=== PATIENT | female | born 1940 | race Caucasian/White ===

== ENCOUNTER 2017-04-14 22:57 | Emergency (ER) | payer OTHER, MEDICARE ==
[~2017-04-14] VITALS: Ht 160 cm; Wt 40.8 kg
[~2017-04-14 22:57] MED LIST: ASPIRIN CHILDRE81 MG PO; ATORVASTATIN CA40 MG PO; MIRALAX17 GM PO; PRINIVIL 5MG5 MG PO; RISPERIDONE 00.25 MG PO; SENNA CON/DOCUS1 TAB PO
--- NOTE | 2017-04-14 23:07 | ED MVC/FALL/TRAUMA COMPLAINT ---
History of Present Illness General Chief Complaint: Fall Stated Complaint: BIBA FALL Source: patient Exam Limitations: clinical condition Vital Signs & Intake/Output Vital Signs & Intake/Output Vital Signs Date Time Temp Pulse Resp B/P B/P Pulse O2 O2 Flow FiO2 Mean Ox Delivery Rate 04/15 0128 98.6 88 18 122/63 96 Room Air 04/15 0101 95 Room Air 04/14 2313 98.4 98 18 131/64 97 Room Air ED Intake and Output 04/15 0000 04/14 1200 Intake Total 0 Output Total Balance 0 Intake, Oral 0 Patient 89 lb 15.99 oz Weight Weight Estimated Measurement Method Allergies Coded Allergies: bee venom protein (honey bee) (Severe, ANAPHYLAXIS 04/15/17) cortisone (UNKNOWN 04/15/17) Reconcile Medications No Known Home Medications Triage Nurses Notes Reviewed? yes Onset: Abrupt Duration: hour(s): Timing: recent history Severity: moderate Injuries/Fall Location: upper extremity Method of Injury: fall Loss of Consciousness: no loss of consciousness Modifying Factors: Improves With: rest. Worsens With: movement, palpation. Associated Symptoms: left shoulder pain HPI: 77 yo woman in prior good health, presents after a fall 3-4 hours prior to arrival. She notes, "I just felt the world fall away and hit my wall. My shoulder really hurts." She notes neck pain and right knee pain. She notes no other injury. No head injury, loss of consciousness. Past History Travel History Traveled to [place] past 21 day No Medical History Any Pertinent Medical History? see below for history Neurological: NONE EENT: NONE Cardiovascular: NONE Respiratory: NONE Gastrointestinal: NONE Hepatic: NONE Renal: NONE Musculoskeletal: NONE Psychiatric: anxiety, depression, insomnia Endocrine: NONE Blood Disorders: NONE Cancer(s): NONE [facility] [facility]/Reproductive: NONE History of MRSA: No History of VRE: No History of CDIFF: No Surgical History Surgical History: none Psychosocial History Who do you live with Sister Services at Home None What is your primary language Northern Irish Daily Tobacco Use Amount/Type: => 5 Cigarettes daily Family History Hx Contributory? No Review of Systems Review of Systems Constitutional: Reports: no symptoms. Eyes: Reports: no symptoms. Ears, Nose, Throat, Mouth: Reports: no symptoms. Respiratory: Reports: no symptoms. Cardiovascular: Reports: no symptoms. Gastrointestinal/Abdominal: Reports: no symptoms. Genitourinary: Reports: no symptoms. Musculoskeletal: Reports: no symptoms. Skin: Reports: no symptoms. Neurological/Psychological: Reports: no symptoms. All Other Systems: Reviewed and Negative Physical Exam Physical Exam General Appearance: mild distress, thin, cachectic Head: atraumatic, normal appearance Eyes: Bilateral: normal appearance, PERRL, EOMI. Ears, Nose, Throat, Mouth: hearing grossly normal, moist mucous membrane Neck: normal inspection, supple, full range of motion, normal alignment Respiratory: normal breath sounds, chest non-tender, no respiratory distress, quiet respiration, lungs clear Cardiovascular: regular rate/rhythm Gastrointestinal: normal bowel sounds, soft, non-tender, no organomegaly Back: normal inspection, normal range of motion Extremities: left shoulder with diffuse swelling. moderate tenderness to palpation, decrease ROM. no significant tenderness at left elbow and left wrist. Neurologic/Psych: no motor/sensory deficits, awake, alert, oriented x 3, thenar wasting Skin: intact, normal color, warm/dry Core Measures ACS in differential dx? No CVA/TIA Diagnosis No Sepsis Present: No Sepsis Focused Exam Completed? No Progress Differential Diagnosis: fx, contusion, electrolyte abnormality vs other. Plan of Care: Orders Procedure Date/time Status EKG 04/15 011 Active URINALYSIS 04/14 2307 Active TROPONIN LEVEL 04/14 2307 Complete PARTIAL THROMBOPLASTIN TIME 04/14 2307 Complete PROTHROMBIN TIME 04/14 2307 Complete COMPREHENSIVE METABOLIC PANEL 04/14 2307 Complete CBC WITHOUT DIFFERENTIAL 04/14 2307 Complete EKG 04/14 2307 Active Laboratory Tests 04/15/17 0007: Anion Gap 11, Estimated GFR > 60, BUN/Creatinine Ratio 22.5, Glucose 128 H, Calcium 8.8, Total Bilirubin 0.2, AST 17, ALT 26, Alkaline Phosphatase 105, Troponin I 0.22 *H, Total Protein 6.6, Albumin 3.2 L, Globulin 3.4, Albumin/ Globulin Ratio 0.9 L, PT 13.1 H, INR 1.25 H, APTT 32, CBC w Diff NO MAN DIFF REQ, RBC 3.81 L, MCV 86.6, MCH 28.9, RDW 13.8, MPV 8.1, Gran % 82.4 H, Lymphocytes % 10.7 L, Monocytes % 6.3, Eosinophils % 0.1, Basophils % 0.5, Absolute Granulocytes 7.3 H, Absolute Lymphocytes 0.9 L, Absolute Monocytes 0.6, Absolute Eosinophils 0, Absolute Basophils 0, PUBS MCHC 33.4 Diagnostic Imaging: Viewed by Me: Radiology Read, CT Scan. Discussed w/RAD: Radiology Read, CT Scan. Radiology Impression: left shoulder/elbow/wrist... mild displaced prox humerus fx, head/cervical spine PATIENT: LIOR DAVID PRESENT AGE: 77 PATIENT ACCOUNT NO: [id number] : 41 LOCATION: [facility] ORDERING PHYSICIAN: Ralph Mendoza MD SERVICE DATE: 04/14/17 EXAM TYPE: CAT - CT CERV SPINE WO IV CONTRAST; CT HEAD WO IV CONTRAST EXAMINATION: CT HEAD WITHOUT CONTRAST CT CERVICAL SPINE WITHOUT CONTRAST CLINICAL INFORMATION: Pain, fall. COMPARISON: CT head dated 09/01/2014. TECHNIQUE: Contiguous axial imaging was performed from the skull base to vertex without intravenous administration of contrast. Multidetector helical imaging was performed through the cervical spine. Coronal and sagittal reformats were completed at the technologist workstation. DLP: 927 mGy-cm. FINDINGS: HEAD: There is a 2.1 x 1.6 cm lesion along the high parasagittal right frontal parietal convexity bordering the posterior aspect of the postcentral gyrus. Surrounding vasogenic edema is seen throughout the right frontal and parietal lobes. A smaller approximately 0.7 cm lesion is noted in the left superior frontal gyrus with minimal surrounding vasogenic edema. Subtle areas of subcortical edema are also noted in the left middle frontal gyrus and in the right parietotemporal region likely reflecting edema from additional lesions which are too small to appreciate on this unenhanced CT scan. There is no midline shift or effacement of basal cisterns. No herniation. There is no evidence of acute intracranial hemorrhage. No evidence of evolved territorial infarct. No extra-axial fluid collections are identified. No hydrocephalus. Degenerative changes are noted in the temporomandibular joints bilaterally. The scalp soft tissues are unremarkable. The mastoid air cells and visualized portions of the paranasal sinuses are well aerated. CERVICAL SPINE: No acute fracture or dislocation is identified in the cervical spine. Vertebral body heights are maintained. The atlantoaxial articulation is normally maintained. No prevertebral soft tissue swelling. Multilevel degenerative changes are noted with disc osteophyte complexes at multiple levels, loss of intervertebral disc space height, and degenerative endplate irregularity. IMPRESSION: 1. Multiple intracranial masses with associated edema suspicious for intracranial metastatic disease. 2. No evidence of acute intracranial hemorrhage or evolved territorial infarct. No midline shift or hydrocephalus. 3. No evidence of acute traumatic injury to the cervical spine. This critical result was discussed with Dr. Mendoza at 12:45 AM on 04/15/2017 and it was ascertained that the content and urgency of the report was understood at the time of direct communication. DICTATED BY: Martir Thao MD DATE/TIME DICTATED:04/15/1733 WATER CHASER:TYLOR DATE/TIME TRANSCRIBED:04/15/1733 CONFIDENTIAL, DO NOT COPY WITHOUT APPROPRIATE AUTHORIZATION. <Electronically signed in Other Vendor System> SIGNED BY: Martir Thao MD 04/15/1752, right knee... no fx PATIENT: LIOR DAVID PRESENT AGE: 77 PATIENT ACCOUNT NO: [id number] : 41 LOCATION: ER ORDERING PHYSICIAN: Ralph Mendoza MD SERVICE DATE: 04/14/17 EXAM TYPE: RAD - XRY-KNEE COMPLETE RIGHT EXAMINATION: XR KNEE, RIGHT CLINICAL INFORMATION: Fall, trauma. COMPARISON : None TECHNIQUE: Four views of the right knee. FINDINGS: Evaluation is limited by osteopenia. No fracture or dislocation is seen. No effusion. There is mild tricompartmental joint space narrowing without significant osteophyte formation. IMPRESSION: No evidence of acute osseous or articular abnormality. DICTATED BY: Martir Thao MD DATE/TIME DICTATED:04/15/1753 WATER CHASER:GALVEZ DATE/TIME TRANSCRIBED:04/15/1753 CONFIDENTIAL, DO NOT COPY WITHOUT APPROPRIATE AUTHORIZATION. <Electronically signed in Other Vendor System> SIGNED BY: Martir Thao MD 04/15/1757, chest/abd/pelvic ct... masses in lungs consistent with adenocarcinoma PATIENT: LIOR DAVID PRESENT AGE: 77 PATIENT ACCOUNT NO: [id number] : 41 LOCATION: [facility] ORDERING PHYSICIAN: Ralph Mendoza MD SERVICE DATE: 04/14/17 EXAM TYPE: CAT - CT ABD & PELVIS W/O IV CONTRAS; CT CHEST WO IV CONTRAST EXAMINATION: CT CHEST, ABDOMEN AND PELVIS WITHOUT CONTRAST CLINICAL INFORMATION: Pain, fall. COMPARISON: No pertinent prior studies are available for comparison. TECHNIQUE: Multidetector volumetric imaging was performed from the thoracic inlet through the pubic symphysis without intravenous contrast. Total exam dose- length product 463 mGy-cm FINDINGS: CHEST: LUNGS: There is biapical pleural- parenchymal scarring. There is centrilobular emphysema. There is masslike consolidation in the left upper lobe with complete effacement of the posterior segmental bronchus of the left upper lobe. There is also masslike consolidation in the right lower lobe with effacement of the airway is. Patchy centrilobular nodules and interlobular septal thickening is noted within the aerated portions of the right lower lobe. Polygonal 4 mm pulmonary nodules are noted both on slice 51 of series 3 which are closely associated with the minor fissure and may represent intrapulmonary lymph nodes. A 3 mm pulmonary nodule is noted in the right middle lobe on slice 58 of series 3. MEDIASTINUM: No mediastinal hematoma. There are borderline prominent lower paratracheal and aortopulmonary window lymph nodes. The heart is normal in size. No pericardial effusion. VASCULAR: No thoracic aortic aneurysm or thoracic aortic dissection. Extensive atherosclerotic vascular calcification is noted. CHEST WALL: No rib fractures, chest wall masses, or chest wall hematomas. ABDOMEN/PELVIS: LIVER, GALLBLADDER, AND BILIARY TREE: The liver is normal in size, shape, and attenuation. No focal hepatic lesion or biliary ductal dilatation is present. The gallbladder is unremarkable with no evidence of radiopaque gallstones, gallbladder wall thickening, or obvious pericholecystic inflammatory changes. PANCREAS: Normal; no mass or surrounding fluid. SPLEEN: Normal size. No focal lesion. ADRENAL GLANDS: Normal; no mass. KIDNEYS AND URETERS: 0.6 cm nonobstructive calculus is noted in the left renal pelvis. The kidneys are otherwise unremarkable in appearance without evidence of mass, hydronephrosis, or perinephric stranding. GASTROINTESTINAL TRACT: Stomach is nondilated. No dilated or abnormal appearing loops of small bowel. There is a moderate stool burden. Diverticulosis is noted in the sigmoid colon. No free fluid in the abdomen. ABDOMINAL WALL: No significant hernia is appreciated. LYMPHOVASCULAR STRUCTURES: No lymphadenopathy. There is extensive atherosclerotic vascular calcification. There is proximal abdominal aortic aneurysmal dilatation to a transverse diameter of 3.2 cm (2: 1:30). There is a probable chronic dissection just proximal to this level, and just beyond the origin of the superior mesenteric artery. The more distal abdominal aorta is ectatic. BLADDER: No focal mass or wall thickening seen. No bladder calculi. PELVIC VISCERA: Unremarkable. OSSEOUS STRUCTURES: There is a minimally displaced fracture of the surgical neck of the left humerus, which extends into the greater tuberosity. No intra-articular extension. There is multilevel degenerative change in the spine. Vertebral body heights are maintained. Spinal alignment is maintained. No evidence of acute spine fracture. The sternum is intact. The hips are intact. The clavicles are intact. IMPRESSION: 1. Masslike consolidation in the left upper lobe and right lower lobe. While this could represent pneumonia, lung malignancy such as adenocarcinoma in situ is favored given the evidence of intracranial metastatic disease on the contemporaneous head CT. 2. Proximal abdominal aortic aneurysm along with a probable chronic dissection more proximally. 3. Minimally displaced fracture of the surgical neck of the left humerus without intra- articular extension. 4. Nonobstructive calculus in the left renal pelvis. This critical result was discussed with Dr. Mendoza at 12:47 AM on 04/15/2017 and it was ascertained that the content and urgency of the report was understood at the time of direct communication. DICTATED BY: Martir Thao MD DATE/TIME DICTATED:04/15/1714 WATER CHASER:TYLOR DATE/TIME TRANSCRIBED:14 CONFIDENTIAL, DO NOT COPY WITHOUT APPROPRIATE AUTHORIZATION. < Electronically signed in Other Vendor System> SIGNED BY: Martir Thao MD 04/15/17 0052 Initial ED EKG: st seg elevation in v2, incomplete in v1. no reciprocal changes. 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 left proximal humerus fx... placed in sling. 04/15/16, 1:40am.... discussed with [facility] transfer - Dr. Cardenas (trauma) and Dr. Pat Talley ([facility]). Pt has no chest pain. Given her fall and likely brain mets, and lack of chest pain, will defer heparin gtt. Pt given aspirin. Pt to be transferred to [facility] ED for coordinated care of multiple complicated issues (+ troponin, trauma, lung cancer with brain mets). discussed at length with patient. Critical Care Note Critical Care Note Critical Care Time: 30-74 min
[2017-04-15 00:25] LABS: ABSOLUTE BASOPHIL COUNT 0 /CUMM (0.0-0.2); ABSOLUTE EOSINOPHIL COUNT 0 /CUMM (0.0-0.7); ABSOLUTE GRANULOCYTE CT 7.3 /CUMM (1.4-6.5); ABSOLUTE LYMPH COUNT 0.9 /CUMM (1.2-3.4); ABSOLUTE MONOCYTE COUNT 0.6 /CUMM (0.10-0.60); BASOPHIL % 0.5 % (0.0-2.0); EOSINOPHIL % 0.1 % (0-5); GRANULOCYTE % 82.4 % (42.2-75.2); MEAN CORPUSCULAR HGB 28.9 PG (27.0-31.0); MEAN CORPUSCULAR HGB CONC 33.4 G/DL (33.0-37.0); MEAN CORPUSCULAR VOLUME 86.6 FL (81.0-99.0); MEAN PLATELET VOLUME 8.1 FL (7.4-10.4); PLATELET COUNT 388 /CUMM (130-400); RBC DISTRIBUTION WIDTH 13.8 % (11.5-14.5); RED BLOOD CELL CT 3.81 /CUMM (4.20-5.40); WHITE BLOOD CELL COUNT 8.8 /CUMM (4.8-10.8)
[2017-04-15 00:39] LABS: PT 13.1 SEC (9.4-12.5); PTT 32 SEC (25-37)
--- NOTE | 2017-04-15 00:52 | CT SCAN REPORT ---
EXAMINATION: CT CHEST, ABDOMEN AND PELVIS WITHOUT CONTRAST CLINICAL INFORMATION: Pain, fall. COMPARISON: No pertinent prior studies are available for comparison. TECHNIQUE: Multidetector volumetric imaging was performed from the thoracic inlet through the pubic symphysis without intravenous contrast. Total exam dose-length product 463 mGy-cm FINDINGS: CHEST: LUNGS: There is biapical pleural-parenchymal scarring. There is centrilobular emphysema. There is masslike consolidation in the left upper lobe with complete effacement of the posterior segmental bronchus of the left upper lobe. There is also masslike consolidation in the right lower lobe with effacement of the airway is. Patchy centrilobular nodules and interlobular septal thickening is noted within the aerated portions of the right lower lobe. Polygonal 4 mm pulmonary nodules are noted both on slice 51 of series 3 which are closely associated with the minor fissure and may represent intrapulmonary lymph nodes. A 3 mm pulmonary nodule is noted in the right middle lobe on slice 58 of series 3. MEDIASTINUM: No mediastinal hematoma. There are borderline prominent lower paratracheal and aortopulmonary window lymph nodes. The heart is normal in size. No pericardial effusion. VASCULAR: No thoracic aortic aneurysm or thoracic aortic dissection. Extensive atherosclerotic vascular calcification is noted. CHEST WALL: No rib fractures, chest wall masses, or chest wall hematomas. ABDOMEN/PELVIS: LIVER, GALLBLADDER, AND BILIARY TREE: The liver is normal in size, shape, and attenuation. No focal hepatic lesion or biliary ductal dilatation is present. The gallbladder is unremarkable with no evidence of radiopaque gallstones, gallbladder wall thickening, or obvious pericholecystic inflammatory changes. PANCREAS: Normal; no mass or surrounding fluid. SPLEEN: Normal size. No focal lesion. ADRENAL GLANDS: Normal; no mass. KIDNEYS AND URETERS: 0.6 cm nonobstructive calculus is noted in the left renal pelvis. The kidneys are otherwise unremarkable in appearance without evidence of mass, hydronephrosis, or perinephric stranding. GASTROINTESTINAL TRACT: Stomach is nondilated. No dilated or abnormal appearing loops of small bowel. There is a moderate stool burden. Diverticulosis is noted in the sigmoid colon. No free fluid in the abdomen. ABDOMINAL WALL: No significant hernia is appreciated. LYMPHOVASCULAR STRUCTURES: No lymphadenopathy. There is extensive atherosclerotic vascular calcification. There is proximal abdominal aortic aneurysmal dilatation to a transverse diameter of 3.2 cm (2: 1:30). There is a probable chronic dissection just proximal to this level, and just beyond the origin of the superior mesenteric artery. The more distal abdominal aorta is ectatic. BLADDER: No focal mass or wall thickening seen. No bladder calculi. PELVIC VISCERA: Unremarkable. OSSEOUS STRUCTURES: There is a minimally displaced fracture of the surgical neck of the left humerus, which extends into the greater tuberosity. No intra-articular extension. There is multilevel degenerative change in the spine. Vertebral body heights are maintained. Spinal alignment is maintained. No evidence of acute spine fracture. The sternum is intact. The hips are intact. The clavicles are intact. IMPRESSION: 1. Masslike consolidation in the left upper lobe and right lower lobe. While this could represent pneumonia, lung malignancy such as adenocarcinoma in situ is favored given the evidence of intracranial metastatic disease on the contemporaneous head CT. 2. Proximal abdominal aortic aneurysm along with a probable chronic dissection more proximally. 3. Minimally displaced fracture of the surgical neck of the left humerus without intra-articular extension. 4. Nonobstructive calculus in the left renal pelvis. This critical result was discussed with Dr. Mendoza at 12:47 AM on 04/15/2017 and it was ascertained that the content and urgency of the report was understood at the time of direct communication.
--- NOTE | 2017-04-15 00:53 | CT SCAN REPORT ---
EXAMINATION: CT HEAD WITHOUT CONTRAST CT CERVICAL SPINE WITHOUT CONTRAST CLINICAL INFORMATION: Pain, fall. COMPARISON: CT head dated 09/01/2014. TECHNIQUE: Contiguous axial imaging was performed from the skull base to vertex without intravenous administration of contrast. Multidetector helical imaging was performed through the cervical spine. Coronal and sagittal reformats were completed at the technologist workstation. DLP: 927 mGy-cm. FINDINGS: HEAD: There is a 2.1 x 1.6 cm lesion along the high parasagittal right frontal parietal convexity bordering the posterior aspect of the postcentral gyrus. Surrounding vasogenic edema is seen throughout the right frontal and parietal lobes. A smaller approximately 0.7 cm lesion is noted in the left superior frontal gyrus with minimal surrounding vasogenic edema. Subtle areas of subcortical edema are also noted in the left middle frontal gyrus and in the right parietotemporal region likely reflecting edema from additional lesions which are too small to appreciate on this unenhanced CT scan. There is no midline shift or effacement of basal cisterns. No herniation. There is no evidence of acute intracranial hemorrhage. No evidence of evolved territorial infarct. No extra-axial fluid collections are identified. No hydrocephalus. Degenerative changes are noted in the temporomandibular joints bilaterally. The scalp soft tissues are unremarkable. The mastoid air cells and visualized portions of the paranasal sinuses are well aerated. CERVICAL SPINE: No acute fracture or dislocation is identified in the cervical spine. Vertebral body heights are maintained. The atlantoaxial articulation is normally maintained. No prevertebral soft tissue swelling. Multilevel degenerative changes are noted with disc osteophyte complexes at multiple levels, loss of intervertebral disc space height, and degenerative endplate irregularity. IMPRESSION: 1. Multiple intracranial masses with associated edema suspicious for intracranial metastatic disease. 2. No evidence of acute intracranial hemorrhage or evolved territorial infarct. No midline shift or hydrocephalus. 3. No evidence of acute traumatic injury to the cervical spine. This critical result was discussed with Dr. Mendoza at 12:45 AM on 04/15/2017 and it was ascertained that the content and urgency of the report was understood at the time of direct communication.
--- NOTE | 2017-04-15 00:56 | RADIOLOGY REPORT ---
EXAMINATION: XR SHOULDER, LEFT XR ELBOW, LEFT XR WRIST, LEFT CLINICAL INFORMATION: Pain, fall, trauma COMPARISON: CT chest abdomen pelvis dated 04/14/2016. TECHNIQUE: AP external rotation, Grashey, scapular Y, and axillary views of the left shoulder. AP and crosstable lateral views of the left elbow 3 views of the left wrist FINDINGS: Left shoulder: There is a minimally laterally displaced fracture through the surgical neck of the left humerus. Left upper lobe opacity is noted within the visualized left hemithorax. No dislocation. Left elbow: No fracture or dislocation. No joint effusion. Anatomic alignment is maintained. No focal soft tissue swelling. Left wrist: No fracture or dislocation. There is mild negative ulnar variance. The carpal arcs are maintained. No focal soft tissue swelling. IMPRESSION: 1. Minimally laterally displaced fracture through the surgical neck of the left humerus. 2. Left upper lobe opacity corresponding with the masslike consolidation in the left upper lobe on CT.
--- NOTE | 2017-04-15 00:58 | RADIOLOGY REPORT ---
EXAMINATION: XR KNEE, RIGHT CLINICAL INFORMATION: Fall, trauma. COMPARISON: None TECHNIQUE: Four views of the right knee. FINDINGS: Evaluation is limited by osteopenia. No fracture or dislocation is seen. No effusion. There is mild tricompartmental joint space narrowing without significant osteophyte formation. IMPRESSION: No evidence of acute osseous or articular abnormality.
[2017-04-15 01:28] VITALS: BP 122/63
== END 2017-04-15 01:17 | disposition short-term general hospital (02) ==
LOC: ERH 22:57
PROVIDERS: Pediatrics
DX: S42.212A Unspecified displaced fracture of surgical neck of left humerus, initial encounter for closed fracture (principal); G93.89 Other specified disorders of brain; R91.8 Other nonspecific abnormal finding of lung field; R79.89 Other specified abnormal findings of blood chemistry; W19.XXXA Unspecified fall, initial encounter; Y92.9 Unspecified place or not applicable; Y93.9 Activity, unspecified
CPT/HCPCS: 73030-LT; 73080-LT; 73110-LT; 73562-RT; 74176; 93005; 93010; J3490

== ENCOUNTER 2017-05-11 13:36 | Emergency (ER) | payer OTHER ==
[~2017-05-11 13:36] MED LIST changes: +ASPIRIN81 M4 PO; +BENTYL10 M1 PO; +CITRACAL + D M1 EACH PO; +DEXAMETHASONE4 M1 PO; +LIDODERM1 EACH TOP; +LOPRESSOR50 M1 PO; +MIRALAX17 G1 PO; +PEPCID20 M1 PO; +SENNA8.6 M3 PO; +SYMBICORT 80-10.2 GM INH; +TYLENOL EXTRA500 M2 PO
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
--- NOTE | 2017-05-11 15:16 | CT SCAN REPORT ---
EXAMINATION: CT HEAD WITHOUT CONTRAST CT CERVICAL SPINE WITHOUT CONTRAST CLINICAL INFORMATION: Trauma. Fall. Hit left side of neck. COMPARISON: CT cervical spine, CT head 04/14/2017. CT of head and CT cervical spine 05/09/2017. TECHNIQUE: Imaging was performed from the skull base to vertex without intravenous administration of contrast. In addition, helical noncontrast CT imaging was acquired through the cervical spine and source images were reviewed along with axial reconstructions and sagittal and coronal MPRs. DLP: 647.92+339.81 mGy-cm FINDINGS: HEAD: No acute change. There is no intracranial hemorrhage, no extra-axial collection. No hydrocephalus. No skull fracture. Again demonstrated is the approximate 2.2 x 1.9 cm lesion on the high right parasagittal right frontal parietal convexity. Surrounding vasogenic edema is again noted unchanged since prior study. The smaller 0.8 cm lesion noted the left superior frontal gyrus seen on the prior CAT scan is unchanged. There is persistent vasogenic edema around this lesion without significant change since prior study. There are small physiologic calcifications in the basal ganglia. There is vascular wall calcification of the vertebral arteries and the internal carotid arteries at the carotid artery siphon bilaterally. CERVICAL SPINE: There is no evidence of acute cervical spine fracture. Vertebral bodies remain normal in height. Cervical vertebrae have normal alignment. There is multilevel degenerative spondylosis of the cervical spine with disc height narrowing and endplate spurs and facet joint arthrosis No pre- or paravertebral soft tissue abnormality is identified. There is nguyen emphysematous changes of lungs the lung apices with subpleural blebs. There is bilateral pleural parenchymal thickening and scarring at both lung apices. There are small calcifications associated with the pleura at the right lung apex. There is arterial vascular calcification of the carotid artery bifurcations bilaterally. No significant lymphadenopathy or inflammation the soft tissues of the neck. The partially visualized paranasal sinuses are normally aerated. The mastoid air cells and middle ear cavities are normally aerated. IMPRESSION: 1. No acute intracranial pathology. Again demonstrated are the bilateral masses in the supratentorial brain parenchyma with surrounding vasogenic edema unchanged since prior CAT scan 05/09/2017. 2. No CT evidence of acute cervical spine fracture or traumatic subluxation. Degenerative spondylosis of cervical spine.
--- NOTE | 2017-05-11 15:22 | CT SCAN REPORT ---
EXAMINATION: CT CHEST WITHOUT CONTRAST CLINICAL INFORMATION: Trauma. Assess for left-sided rib fracture. COMPARISON: CT chest from 04/14/2017. TECHNIQUE: Multidetector volumetric CT imaging of the chest was done. Axial MIP volume rendering provided. Sagittal and coronal reformatted images were obtained. DLP: 191 mGy-cm FINDINGS: DENIER CONTROL OPERATOR: The left arm is down. Bilateral masslike parenchymal opacities are redemonstrated. LUNGS: Biapical pleural-parenchymal scarring and underlying emphysema are redemonstrated. There has been no significant interval change in the spiculated masslike opacities involving the left upper lobe, abutting and infiltrating across the fissure to involve a portion of the lingula and left lower lobe, with left hilar extension, and within the right lower lobe with occlusion of the right lower lobe segmental airways and left posterior hilar extension. No progressive findings in the lungs in the short interval since 04/14/2017. MEDIASTINUM: The heart size is normal. There are coronary calcifications. The thoracic aorta is normal in caliber with calcification. PLEURA: There appears to be a small right-sided pleural effusion, stable. AXILLA: No axillary adenopathy is visualized. UPPER ABDOMEN: No acute abnormalities in the imaged upper abdomen. There is stable ectasia of the upper abdominal aorta. OSSEOUS STRUCTURES: No interval compression deformities. There are multilevel degenerative changes of the spine. No rib fractures. Stable fracture of the proximal left humerus with impaction IMPRESSION: No change in the appearance of the chest relative to 04/14/2017. No interval rib fractures. Large masslike airspace opacification centered in the left upper lobe and right lower lobe with bilateral hilar soft tissue extension.
--- NOTE | 2017-05-11 15:35 | RADIOLOGY REPORT ---
EXAMINATION: XR SHOULDER, LEFT CLINICAL INFORMATION: History of fracture of humerus. Recurrent fall on left side. COMPARISON: Left shoulder 04/14/2017, 05/09/2017. TECHNIQUE: Four views of the left shoulder. FINDINGS: There is a fracture through the surgical neck of the humerus. Fracture fragment is displaced. The distal fracture fragment is displaced superiorly. The humeral head remains articulated with the glenoid and there is angulation of the fracture. Fracture was present on the study of 04/14/2017. There is been further bone resorption of the fracture margins which is an expected finding of early healing but there is no endosteal bone union of the bone fragments. The acromioclavicular joint remains normal. No fracture of scapula. There is thickening of the pleura at the left lung apex. IMPRESSION: There is angulated fracture through the surgical neck of the humerus which was present on the radiograph of 04/14/2017. No endosteal union.
[2017-05-13 10:00] VITALS: BP 189/86
== END 2017-05-13 11:26 | disposition still patient (30) ==
LOC: ERH 13:36
DX: S42.212A Unspecified displaced fracture of surgical neck of left humerus, initial encounter for closed fracture (principal); G93.9 Disorder of brain, unspecified; C34.90 Malignant neoplasm of unspecified part of unspecified bronchus or lung; W19.XXXA Unspecified fall, initial encounter; Y92.9 Unspecified place or not applicable; Y93.9 Activity, unspecified
CPT/HCPCS: 73030-LT; J3490